=== PATIENT | male | born 1995 | race Caucasian/White ===

== ENCOUNTER 2018-07-19 21:42 | Emergency (ER) | payer OTHER ==
[~2018-07-19] VITALS: Ht 180.3 cm; Wt 95.5 kg
[2018-07-19 21:46] VITALS: TEMP 97.5
[2018-07-19 23:41] VITALS: BP 122/81; PULSE 50
== END 2018-07-19 23:42 | disposition home or self-care (01) ==
LOC: COL.ER 21:42
DX: R07.89 Other chest pain (principal)
CPT/HCPCS: J1885